=== PATIENT | female | born 1940 | race Caucasian/White ===

== ENCOUNTER 2024-11-01 10:06 | Outpatient (CLI) | payer OTHER, SELFPAY | END 2024-11-01 10:07 | disposition home or self-care (01) | LOC: AMB 11-04 08:46 | PROVIDERS: PCP Family Medicine; Visit Provider Student in an Organized Health Care Education/Training Program | DX: M25.511 Pain in right shoulder (principal); S41.001A Unspecified open wound of right shoulder, initial encounter | CPT/HCPCS: A0425; A0433 ==

== ENCOUNTER 2024-11-01 10:47 | Emergency (ER) | payer OTHER, SELFPAY ==
[2024-11-01] VITALS (8 sets, daily range): BP systolic 91–103; BP diastolic 70–73; PULSE 56–81; RESP 18; TEMP 36.2; O2SAT 90–96
--- NOTE | 2024-11-01 11:25 | ED.GENADULT ---
HPI - General Adult General Chief complaint: Unspecified Complaint, Adult Stated complaint: Shoulder pain Time Seen by Provider: 11/01/24 11:25 History of Present Illness HPI narrative: Nursing report from [facility] notes concern for increase in crying and potentially pain from pressure ulcer on right back. She arrived at [facility] only a few days ago after being hospitalized at [facility]. Patient diagnosed with severe dementia and is unable to verbal complaint. EMS started 20 gauge IV in left ac. Administered 1000 mg IV Tylenol, 50 mcg Fentanyl and 2 mg Morphine. 84-year-old woman presenting to the emergency department. Does cry in the setting of dementia and has been crying more lately. She is a new resident [facility] and concerned that something more might be going on. Family is at a distance and concern. No fever. No vomiting. With suspected complaints of pain EMS has given acetaminophen fentanyl and morphine. No known trauma. Does have a sore on the right shoulder blade back area. I understand this to be pressure ulcer of some sort. Related Data Allergies Allergy/AdvReac Type Severity Reaction Status Date / Time codeine Allergy Unknown Verified 11/01/24 11:09 lisinopril Allergy Unknown Verified 11/01/24 11:09 methotrexate Allergy Unknown Verified 11/01/24 11:09 Penicillins Allergy Unknown Verified 11/01/24 11:09 sulfamethoxazole (From Allergy Unknown Verified 11/01/24 11:09 Sulfamethoxazole-Trimethoprim) trimethoprim (From Allergy Unknown Verified 11/01/24 11:09 Sulfamethoxazole-Trimethoprim) Review of Systems Status of ROS: Reports: unobtainable due to mental status [facility] Social History Smoking Status: Unknown if ever smoked Exam Narrative: Exam Narrative: Crying and fearful. Cries out more with movement of the right shoulder but in general and with any interventions. I do not appreciate any defect, no erythema or swelling, other than we rolled her to see a known pressure ulcer/wound on her back right shoulder. There is a padded dressing over the top of this. An oval at 4 cm or so in maximal dimension. No particular inflammatory changes, no odor and no purulent drainage. For I believe lungs are clear but hard to auscultate for crying out. Heart in regular rate and rhythm. Appears to be moving all extremities without difficulty or least good strength. Const: Vital Signs, click to edit/add: Vital Signs - 24 hr 11/01/24 11:10 11/01/24 11:10 11/01/24 11:26 Temperature 97.2 F L Pulse Rate 71 77 Pulse Rate [Pulse Oximeter] 56 L Respiratory Rate 18 Blood Pressure Blood Pressure [Ri ght Upper Arm] 91/73 Pulse Oximetry 96 91 Oxygen Delivery Me thod Room Air 11/01/24 11:30 11/01/24 11:32 11/01/24 11:45 Temperature Pulse Rate 68 62 62 Pulse Rate [Pulse Oximeter] Respiratory Rate Blood Pressure 103/70 Blood Pressure [Ri ght Upper Arm] Pulse Oximetry 92 Oxygen Delivery Me thod 11/01/24 12:00 11/01/24 12:02 11/01/24 12:15 Temperature Pulse Rate 81 68 68 Pulse Rate [Pulse Oximeter] Respiratory Rate Blood Pressure 98/73 Blood Pressure [Ri ght Upper Arm] Pulse Oximetry 93 90 Oxygen Delivery Me thod Documenting provider has reviewed patient's vital signs: yes Course Vital Signs Vital signs: Initial Vital Signs Temperature 97.2 F L 11/01/24 11:10 Temperature Source Temporal Artery Scan 11/01/24 11:10 Pulse Rate 71 11/01/24 11:10 Respiratory Rate 18 11/01/24 11:10 Blood Pressure 91/73 11/01/24 11:10 Blood Pressure Mean 79 11/01/24 11:10 Pulse Oximetry 96 11/01/24 11:10 Oxygen Delivery Method Room Air 11/01/24 11:10 Vital Signs Temperature 97.2 F L 11/01/24 11:10 Pulse Rate 71 11/01/24 11:10 Respiratory Rate 18 11/01/24 11:10 Blood Pressure 91/73 11/01/24 11:10 Pulse Oximetry 96 11/01/24 11:10 Oxygen Delivery Method Room Air 11/01/24 11:10 Temperature 97.2 F L 11/01/24 11:10 Pulse Rate 68 11/01/24 12:15 Respiratory Rate 18 11/01/24 11:10 Blood Pressure 98/73 11/01/24 12:02 Pulse Oximetry 90 11/01/24 12:15 Oxygen Delivery Method Room Air 11/01/24 11:10 Medications Administered Medications: Discontinued Medications Generic Name Dose Route Start Last Admin Trade Name Freq PRN Reason Stop Dose Admin Sodium Chloride 1,000 mls @ 1,000 mls/hr 11/01/24 12:36 11/01/24 13:44 0.9 % Sodium Chloride 1000 Ml IV 11/01/24 13:35 Infused .Q1H ONE Infusion Ondansetron HCl 4 mg 11/01/24 14:35 11/01/24 14:39 Ondansetron 2 Mg/Ml Inj IVP 11/01/24 14:36 4 mg ONCE ONE Administration Medical Decision Making MDM Narrative Medical decision making narrative: Might be good if behaviors been changing due to simply urinary tract infection to check for this. Very small amount of urine out with catheterization Given a L normal saline as probably some dehydrated duration going on given his small amount of urine created with catheterization. Will check standard labs to look for evidence of further infection and did double check renal function. Will do x-rays of the right shoulder just to make sure were not dealing with anything beyond this ulcer. X-ray of the right shoulder is with some mild osteoarthritic changes per my independent read. Looks to be in normal alignment Urinalysis is unconvincing. This is catheter obtained. CBC and basic are WNL as well. Radiology over-read below INDICATION: Chronic pain, not otherwise described. COMPARISON: None available. TECHNIQUE: Three views of the right shoulder. FINDINGS: All three views are taken with a very similar patient orientation amounting to a scapular Y-view with the humeral head superimposed upon the glenoid. Alignment of the glenohumeral joint is normal. No fracture is identified. The patient is status post internal fixation of multiple right ribs. IMPRESSION: No specific findings to explain the clinical history of chronic pain. Incidental findings described in the body of the report. Dictated by Gregorio Kahn MD @ 11/01/2024 1:23:08 PM Given degree of dementia with a suspect some anxiety related to new placement. Perhaps this is driving some of the crying she has been doing. Would await culture urine for more convincing results before treatment. I think can safely be discharged to care of [facility]. See patient discharge plan for further discussion Small findings in your urine. We will however look at culture before initiating treatment. You probably need to meet with your care team to discuss further pain management if needed. Please continue current with wound cares/test specialist Medical Records Medical records reviewed: Yes I reviewed the patient's medical records Lab Data Lab results reviewed: Yes I reviewed the patient's lab results Labs: Lab Results 11/01/24 11/01/24 Range/Units 12:09 12:38 WBC 5.32 (4.50-11.00) K/uL RBC 3.44 L (4.00-5.20) m/uL Hgb 12.3 (12.0-16.0) gm/dL Hct 38.3 (33.0-51.0) % MCV 111 H (80-100) fL MCH 36 H (26-34) pg MCHC 32 (32-36) gm/dL RDW Coeff of Anil 15.6 H (11.5-15.5) % Plt Count 292 (140-440) K/uL Neut % (Auto) 83.4 H (42.0-72.0) % Lymph % (Auto) 9.6 L (20-44) % [place] % (Auto) 0.9 (0.0-11.0) % Eos % (Auto) 1.9 (0.0-7.0) % Baso % (Auto) 0.6 (0.0-3.0) % Neut # (Auto) 4.40 (1.7-7.0) K/uL Lymph # (Auto) 0.50 L (0.90-2.90) K/uL [place] # (Auto) 0.00 (0.00-0.90) K/UL Eos # (Auto) 0.10 (0.00-0.50) K/uL Baso # (Auto) 0.03 (0.00-0.30) K/uL Abs Immat Gran (auto) 0.19 (0.00-0.30) K/uL Imm/Tot Granulo (auto) 3.6 % Diff Slide Review Acceptable Review (Acceptable) Sodium 134 L (135-149) mmol/L Potassium 4.2 (3.6-5.1) mmol/L Chloride 104 (96-114) mmol/L Carbon Dioxide 24 (20-32) mmol/L Anion Gap 6 L (7-15) mEq/L BUN 27 (7-30) mg/dL Creatinine 1.3 (0.5-1.5) mg/dL Estimated GFR 40 ml/min Glucose 93 (60-115) mg/dL Calcium 8.1 L (8.4-10.6) mg/dL Urine Color Yellow (Yellow) Urine Appearance Slightly Cloudy A (Clear) Urine pH 5.5 (5.0-8.5) Ur Specific [place] 1.010 (1.000-1.030) Urine Protein Negative (Negative) Urine Glucose (UA) Negative (Negative) Urine Ketones Trace A (Negative) Urine Blood Negative (Negative) Urine Nitrite Negative (Negative) Urine Bilirubin 2+ A (Negative) Urine Urobilinogen 0.2 (0.2-1.0) Ur Leukocyte Esterase Trace A (Negative) Urine RBC 0-2 (0-2) Urine WBC 5-10 A (0-5) Ur Squamous Epith Cells Few (None-Few) Amorphous Sediment Few A (None) Other Sediment Few A (None) Urine Bacteria None (None) Discharge Plan Discharge Clinical Impression: Non-healing wound, Anxiety Patient Disposition: Home w/ Parent or Adult Condition: Stable Additional Instructions: Small findings in your urine. We will however look at culture before initiating treatment. You probably need to meet with your care team to discuss further pain management if needed. Please continue current with wound cares/test specialist Follow Up/Referrals: Paul Wills MD [Primary Care Provider, Family Practice] Stand Alone Forms: FeedHenry Info Instructions
--- NOTE | 2024-11-01 11:45 | CRLHL7_ITS ---
For Patients: As a result of the Cures Act, medical imaging exams and procedure reports are released immediately into your electronic medical record. You may view this report before your referring provider. If you have questions, please contact your health care provider. INDICATION: Chronic pain, not otherwise described. COMPARISON: None available. TECHNIQUE: Three views of the right shoulder. FINDINGS: All three views are taken with a very similar patient orientation amounting to a scapular Y-view with the humeral head superimposed upon the glenoid. Alignment of the glenohumeral joint is normal. No fracture is identified. The patient is status post internal fixation of multiple right ribs. IMPRESSION: No specific findings to explain the clinical history of chronic pain. Incidental findings described in the body of the report. Dictated by Gregorio Kahn MD @ 11/01/2024 1:23:08 PM (Electronically Signed)
--- OUTSIDE RECORDS SUMMARY | 2024-11-01 11:45 | XMS_ITS | Clinical Summary ---
Author Organization [facility] Address [address] [place] [id number] Care Team Providers Care Towboat Pilot Name Role Phone Cam Mccall Primary Care Provider Shine Garza [facility] Unavailable [phone] Allergies Active Allergy Reactions Criticality Noted Date Comments Codeine Nausea Only 04/16/2007 Lisinopril Cough 11/08/2016 Methotrexate Pancytopenia 12/02/2019 Penicillins Intolerance-Can't Take 07/15/2024 Per [facility] Sulfamethoxazole-Trime thoprim GI Upset 11/08/2016 Medications nitroglycerin (NITROSTAT) 0.4 mg sublingual tablet One tablet under tongue every 5 minutes up to 3 times as needed for chest pain. Call 911 if chest pain persists. 25 Tablet 11 2 12:59 PM CDT 10/07/19 22 Active timoloL maleate (TIMOPTIC) 0.5 % ophthalmic solution Place 1 Drop into left eye two times daily. 15 mL 3 4 12:37 PM CDT 03/20/20 23 Active omeprazole (PRILOSEC) 20 mg Delayed-Release capsule Take 1 Capsule (20 mg) by mouth once daily before a meal. 90 Capsule 3 4 1:35 PM CDT 06/07/19 24 Active brimonidine 0.2 % ophthalmic solution Place 1 Drop into both eyes two times daily. 15 mL 11 4 4:20 PM [employer] DIES 06/07/19 24 Active latanoprost (XALATAN) 0.005 % ophthalmic solution Place 1 Drop into left eye at bedtime. 7.5 mL 3 4 3:34 PM [employer] 12/13/19 24 Active atorvastatin (LIPITOR) 20 mg tablet Take 1 Tablet (20 mg) by mouth once daily. 90 Tablet 3 4 3:34 PM [employer] 01/23/20 24 Active furosemide 20 mg tabletIndications :Chronic heart failure with preserved ejection fraction (HFpEF) (HC) Take 0.5 Tablets (10 mg) by mouth once daily in the morning. Hold for SBP <100. 09/21/19 25 Active potassium chloride 10 mEq extended-release tablet (part/cryst)Indic ations:Hypokalemi a Take 1 Tablet (10 mEq) by mouth once daily with a meal. Hold if Lasix is held. 09/21/19 25 Active sennosides-docusa te (8.6-50 mg) tablet Take 2 Tablets by mouth 2 times daily if needed for Constipation. 09/24/19 25 Active calcium with vitamin D3 tablet Take 1 Tablet by mouth two times daily. Active metoprolol succinate SR 100 mg Sustained-Release tabletIndications :Permanent atrial fibrillation (HC) Take 1 Tablet (100 mg) by mouth two times daily. 09/29/19 25 Active digoxin 125 mcg (0.125 mg) tabletIndications :Permanent atrial fibrillation (HC) Take 1 Tablet (125 mcg) by mouth once daily. 09/30/19 25 Active docusate 100 mg capsule Take 1 Capsule (100 mg) by mouth once daily. And Take 1 tablet once daily as needed. Hold for loose stools. 09/30/19 25 Active warfarin 1 mg tabletIndications :Permanent atrial fibrillation (HC),Anticoagulat ion monitoring, INR range 2-3 Take by mouth 1 mg (1 mg x 1) every Mon, Fri; 1.5 mg (1 mg x 1.5) all other days in the evening OR as directed 10/01/19 25 Active acetaminophen 325 mg tabletIndications :Closed fracture of left tibial plateau with routine healing, subsequent encounter Take 2 Tablets (650 mg) by mouth three times daily. & 650 mg TID PRN. Max acetaminophen dose: 4000mg in 24 hrs. 10/02/19 25 Active mirtazapine 15 mg tablet Take 0.5 Tablets (7.5 mg) by mouth at bedtime. 10/15/19 25 Active ondansetron [address] 1 Tablet (4 mg) on the tongue 3 times daily if needed for Nausea/Vomiting. 10/02/19 25 025 Discontin ued(*Med complete/ Regimen complete/ Level of care change) oxyCODONE 5 mg immediate release tablet Take 0.5 Tablets (2.5 mg) by mouth every 8 hours if needed for Pain. 10/01/19 25 025 Discontin ued(*Med complete/ Regimen complete/ Level of care change) Active Problems Problem Noted Date Diagnosed Date DNR (do not resuscitate) 09/29/2024 Overview (09/29/2024): Discussed with daughter Laura on 09/29/2024. Outpatient palliative care follow up for [facility] discussion Lower abdominal pain 09/06/2024 Hypotension 09/05/2024 Hyponatremia 09/05/2024 Pressure injury of right upper back, unstageable 08/23/2024 Overview (09/16/2024): -Following fall 06/2024 -Initial Wound Clinic evaluation 08/23/24, unstageable -09/16/24 follow up, Stage 3 - much larger Cognitive impairment 08/23/2024 S/P Right femur intramedulla ry nail DOS: 07/04/2024 Dr. Cate Quispe 07/05/2024 Herpetic gingivostomatitis 06/06/2019 Pancytopenia 05/25/2019 Chronic heart failure with p reserved ejection fraction (HFpEF) 01/29/2018 Macrocytic anemia 11/21/2017 Cataract, right eye 11/08/2016 Hypertensive kidney disease, stage III 7 Overview (07/13/2019): Chronic Kidney Disease (CKD) Stage 3 GFR 30-59 Impaired fasting glucose 10/26/2015 Osteopenia 10/26/2015 Acquired trigger finger 09/02/2015 Unsteady gait 06/08/2015 Acquired deformity of clavicle 06/07/2015 Rhinitis, allergic 10/13/2014 Arteriosclerosis of coronary artery 04/15/2014 Gastroesophageal reflux disease 04/15/2014 Acquired renal artery stenosis 10/12/2013 Overview (07/13/2019): Stenosis Renal Artery, Left lower Atherosclerosis and Stenosis of the Left Lower Renal Artery (note that she has two left renal arteries)If her blood pressure remains under good control I would not intervene would respect to the stenosis of the left lower renal artery even though this may contribute to some renin-dependent hypertension. If her blood pressure becomes difficult to control, then selective renal vein renin would be indicated.As per Nephrology note from 06/06/2006. 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 Montoya, ENT on 02/06/2009. Seronegative rheumatoid arthritis 10/12/2013 Overview (09/16/2024): Per [facility] Solitary pulmonary nodule 10/12/2013 Stenosis of left carotid artery 10/12/2013 Overview (07/13/2019): She saw [facility] on 07/20/2006. No further intervention indicated. Sensorineural hearing loss (SNHL) of both ears 0 02/06/2013 Ascending aortic aneurysm 04/05/2012 Overview (07/13/2019): Dilatation Ascending Aorta Hyperlipidemia 04/05/2012 Glaucoma 11/25/2009 Elevated antinuclear antibody (DO) level 2008 Essential hypertension 07/24/2007 Resolved Problems Problem Noted Date Diagnosed Date Resolved Date Closed fracture of lateral p ortion of left tibial plateau with routine healing 07/22/202408/04 Anticoagulation monitoring, INR range 2-3 07/16/2024 10/24/2024 Closed displaced segmental f racture of shaft of right femur 07/06/2024 08/23/2024 Permanent atrial fibrillation 12/02/2019 10/24/2024 Overview (08/23/2024): AI Summary: As of 07/25/24: The patient's AFib has been associated with complications such as elevated troponin levels (possibly indicating ischemia) and has been managed with rate control medications. DVT prophylaxis with coumadin was also noted in the context of hip fracture. As of 07/08/24: Atrial fibrillation (AFib) with rapid ventricular rate (RVR) was first noted in 2019 and has been a recurring issue, requiring multiple cardioversions. The patient experienced early recurrence after cardioversion in 2019. 07/12/24: HR 71 /min 07/19/24: INR 2.3 On meds: diltiazem, metoprolol succinate, potassium chloride, timolol, warfarin Recent encounter dx: 07/25/24: Appointment - [facility] 07/23/24: Lab Requisition - [facility], [facility]) 07/23/24: Appointment - [facility] 07/18/24: Support OP Encounter - [facility] 07/17/24: Lab Requisition - [facility], [facility] (from [facility]) Recent studies: 07/04/24: 12 Lead EKG by Joey Mercado MD ... [+] Atrial fibrillation with rapid ventricular response Inferior infarct , age undetermined ST & T wave abnormality, consider anterolateral ischemia Abnormal ECG When compared with ECG of 03-Jul-2024 19:24, Inferior infarct is present vent rate decreased 41 bpm 07/04/24: ECHO TRANSTHORACIC COMPLETE by Joey Mercado MD, Shlomo Dsouza MD ... [+] Indication for study: CHRONIC ISCHEMIC HEART DISEASE Cardiac Rhythm: Irregular and atrial fibrillation.Study quality: Fair. ... [+] Final Impressions: 1. The rhythm was afib with RVR during the study [V- rate 130s-150s bpm]. 2. LVEF estimate 50-55%. Normal LV size and wall thickness. 3. Normal RV size and global function. 4. Mild AI. 5. Mild MR and mild TR. 6. Severe MICK. 7. Normal PASP and RAP estimates. 8. Dilated ascending aorta [4.8 cm]. Chamber Sizes and Function No resting regional wall motion abnormality visualized. ... 07/03/24: EKG [address] [facility] Ed Triage ... [-] Atrial fibrillation with rapid ventricular response Marked ST abnormality, possible inferior subendocardial injury Abnormal ECG 03/13/20: EKG - 12 Lead by Ochoa Wiley MD ... [+] Atrial fibrillation Incomplete right bundle branch block ST & T wave abnormality, consider inferior ischemia or digitalis effect ST & T wave abnormality, consider anterolateral ischemia or digitalis effect Prolonged QT Abnormal ECG No previous ECGs available 03/10/20: [facility] [place] ... [+] Atrial fibrillation Final Impressions ... [+] Calculated ejection fraction 54% (estimated 50%, fywc-cl-unuo variation due to atrial fibrillation). ... [+] Compared to the report of 01/09/2019 the following changes have occurred: atrial fibrillation replaced sinus rhythm; decreased left ventricular systolic function; stable aortic diameters. Recent notes: 07/25/24: Progress Notes - TCU VISIT NOTE by Andreina Nixon MD ... [+] ? Atrial fibrillation (HC) ... [+] WBAT LLE, WBAT RLE per ortho DVT proph - already on coumadin for a fib. ... [+] Atrial fibrillation with RVR (HC) 07/23/24: Progress Notes - TCU VISIT NOTE by [place] Santana NP ... [+] NWB LLE, WBAT RLE per ortho DVT proph - already on coumadin for a fib. 07/12/24: Discharge Summary by Bladimir Alvarenga MD ... [+] Paroxysmal atrial fibrillation (HC) ... [+] For diagnoses: Atrial fibrillation with RVR (HC) ... [+] F/u [facility] in 4-6 weeks s/p afib w/RVR, med mgmt for rate control, preserved EF 07/11/24: Progress Notes by Bladimir Alvarenga MD ... [+] initially 3.7 -> 3.2 -> 2.9 --> 3.4 in setting of severe pain, rapid afib. ... [-] trop slightly elevated 20->22, likely demand ischemia in context of CKD and rapid afib up to 150s in the room. 07/08/24: Progress Notes - Inpatient General Cardiology Progress Note by Maral Johnson NP ... [+] Afib w/RVR ... [+] Karina Castaneda is a 84 y.o. female with atrial fibrillation s/p cardioversion after 5 shocks with early recurrence in 2020, YUE, hypertension, AAA, ASCVD, chronic HFpEF, aortic aneurysm, who presented with a fall and right hip fracture complicate d by atrial fibrillation with RVR. ... [-] Cardiology consulted for afib w/RVR rate mgmt. ... [+] Tele: Afib 70-80's ... [+] EC07/04/24: Afib w/RVR, VR 114, inferior TWI 07/03/24: Afib with RVR, VR 155, inferior TWI Mouth ulceration 05/24/2019 08/23/2024 Menopause 10/16/2013 08/23/2024 Hypokalemia 04/09/2012 07/04/2024 Encounters Date Type Department Care Team Description 10/30/[address] [place] [address] Ivan Osorio MD Questions (anticoagulation) 10/24/[address] [address] Clinic, Asct Tcu Inr Anticoagulation (TCU DC) 10/22/2024 Patient Outreach [facility] Care Management - Care Management Navigation/[facility] [address] [place] [address] Derek Hinds COTA TCU Transition 10/21/2024 9:30 AM T Intermediate [address] [address] [place] Santana NP Transitional Care Visit (TCU Discharge Summary) 10/21/2024 Anticoagulation (warfarin) [address] [address] Clinic, Asct Tcu Inr Anticoagulation (TCU) 10/14/2024 9:45 AM T Intermediate [address] [address] [place] Santaan NP Transitional Care Visit (Follow up) 10/08/2024 9:15 AM CDT Intermediate [address] [address] [place] Santana NP Transitional Care Visit (Follow up) 10/08/2024 Telephone [facility] [address] [place] [address] Shine Garza NP Wound Check (Developing hypergranulation - call back requested) 10/07/2024 Anticoagulation (warfarin) [address] [address] Clinic, Asct Tcu Inr Anticoagulation (TCU) 10/04/2024 10:15 AM CDT Intermediate [address] [address] [place] Santana NP Transitional Care Visit (Follow up) 10/03/2024 Orders Only [facility] Scanner 1 scan: (1-Ord) [facility], 10/03/2024 10/03/2024 Nurse Triage [address] [address] [place] Santana NP Results 10/02/2024 9:30 AM CDT Phone Office Visit [facility] Orthopedics [facility] [address] [phone] Cate Quispe MD Recheck (EP-PV, S/P Right femur intramedullary nail DOS:07/04/2024 Dr. Cate Quispe, x-ray review) 10/02/2024 Patient Outreach [facility] - Care Management [facility]/[address] [address] Derek Hinds COTA TCU Transition 10/02/2024 Travel 10/01/2024 8:15 AM CDT Intermediate [address] [address] Andreina Nixon MD Transitional Care Visit (MD Re-Admit) 10/01/2024 Patient Outreach [facility] Management - Care Management Navigation/[facility] [address] [place] [address] Derek Hinds, GONZALES TCU Transition 09/30/2024 11:00 AM CDT Intermediate [address] [address] [place] Santana NP Transitional Care Visit ([facility] Re-admit/Initial) 09/30/[address] [address] [place] Santana NP Medication Management (Multi-vitamin; pantoprazole verses omeprazole ) 09/30/2024 Anticoagulation (warfarin) [address] [address] Clinic, Asct Tcu Inr Anticoagulation (TCU ) 09/30/2024 Travel 09/29/2024 Telephone [facility] [address] [place] [address] Brandi Poole MBBS 09/27/[address] Blanco [address] [place] [address] Ivan Osorio MD Cardiology Appointment 09/26/2024 Patient Outreach [facility] Care Management - Care Management Navigation/[facility] [address] [place] [address] Derek Hinds, GONZALES TCU Transition 09/25/2024 Patient Outreach [facility] Care Management - Care Management Navigation/[facility] [address] [place] [address] Derek Hinds, GONZALES TCU Transition 09/24/2024 11:47 AM CDT - 09/29/2024 12:15 PM CDT Hospital Encounter [facility] [address] [place] [address] Artie Dent MD [facility] Hospitalists Of Iván, MD Gal Potts, MD Liya Nolankvicmyla, MD Zulema Parra Hani, MBBS Confusion (Primary Dx); Blood pressure lower than prior measurement; Other problems related to social environment; Permanent atrial fibrillation (HC) Discharge Disposition: Shelter Facility 09/24/2024 10:30 AM CDT Office Visit [facility] [address] [place] [address] [address] [place] [address] Ivan Osorio MD Follow Up (Follow up post hosp discharge re: Afib w/ RVR (06/2024)) 09/24/2024 Telephone [facility] [address] [place] [phone] Cate Quispe MD 09/24/2024 Travel 09/23/2024 9:30 AM CDT Intermediate [address] [address] [place] Santana NP Transitional Care Visit (Follow up) 09/20/2024 Orders Only [facility] Scanner 1 scan: (1-Ord) [facility], PT/INR, [facility], 09/20/2024 09/20/2024 Anticoagulation (warfarin) [address] [address] Clinic, Asct Tcu Inr Anticoagulation (TCU) 09/19/2024 9:15 AM CDT [address] [address] [place] Santana NP Transitional Care Visit (Follow up) 09/18/2024 Patient Outreach [facility] Management - Care Management Navigation/[facility] [address] [place] [address] Derek Hinds COTA TCU Transition 09/17/2024 9:15 AM CDT Intermediate [address] [address] [place] Santana NP Transitional Care Visit (Follow up) 09/16/2024 1:00 PM CDT Office Visit [facility] [address] [place] [address] Shine Garza NP Wound Check 09/16/2024 Travel 09/16/2024 Patient Outreach [facility] Management - Care Management Navigation/[facility] [address] [place] [address] Derek Hinds GONZALES TCU Transition 09/13/2024 9:45 AM CDT Intermediate [address] [address] [place] Santana NP Transitional Care Visit (Follow up) 09/13/2024 Orders Only [facility] Scanner 1 scan: (1-Ord) [facility], [facility], 09/13/2024 09/13/2024 Anticoagulation (warfarin) [address] [address] Clinic, Asct Tcu Inr Anticoagulation (TCU) 09/13/2024 Nurse Triage [address] [address] [place] Santana NP Results ([facility]) 09/11/2024 9:15 AM CDT Intermediate [address] [address] [place] Santana NP Transitional Care Visit ([facility] Initial/Re-Admit) 09/11/2024 Anticoagulation (warfarin) [address] [address] [place] Santana NP Anticoagulation (TCU) 09/06/2024 Patient Outreach [facility] Care Management - Care Management Navigation/[facility] [address] [place] [address] Derek Hinds GONZALES TCU Transition 09/05/2024 8:05 PM CDT - 09/10/2024 3:30 PM CDT Hospital Encounter [facility] [address] [place] [address] Artie Dent MD [facility] Hospitalists Of Walter, MD Yanira Llanos Duc Minh, MD Desautels, Sophie St MD Generalized weakness (Primary Dx); Acute kidney injury; Hypotension, unspecified hypotension type; Permanent atrial fibrillation (HC); Atrial fibrillation with RVR (HC); Chronic heart failure with preserved ejection fraction (HFpEF) (HC); Hypokalemia Discharge Disposition: Shelter Facility 09/05/2024 8:45 AM CDT Intermediate [address] [address] [place] Santana NP Transitional Care Visit (Follow up) 09/05/2024 Orders Only [facility] Scanner 1 scan: (1-Ord) [facility], MULTIPLE LABS, 09/05/2024 09/05/2024 Orders Only [facility] Scanner 1 scan: (1-Ord) [facility], ABDOMEN 2 VIEWS, 09/05/2024 09/05/2024 Travel 09/05/2024 Nurse Triage [address] [address] [place] Santana I, LISA Abnormal Lab Results (CBC, UA) 09/05/2024 Nurse Triage [address] [address] [place] Santana NP Imaging 09/05/2024 Patient Outreach [facility] Whyd - Care Management Navigation/[facility] [address] [place] [address] Derek Hinds COTA TCU Transition 09/05/2024 Nurse Triage [address] [address] [place] Santana NP Pain (Abdomen ) 09/04/2024 Orders Only [facility] Scanner 1 scan: (1-Ord) [facility], PROTIME INR, 09/04/2024 09/04/2024 Anticoagulation (warfarin) [address] [address] Clinic, Asct Tcu Inr Anticoagulation ( ASCT TCU Patient ([facility]) ) 09/04/2024 Telephone [facility] [address] [place] [address] Karina Ryan NP Home Care (Home Health Care Plan after Transitional Care Unit discharge) 09/04/2024 Patient Outreach [facility] Management - Care Management Navigation/[facility] [address] [place] [address] Derek Hinds COTA TCU Transition 09/03/2024 8:45 AM CDT Intermediate [address] [address] [place] Santana NP Transitional Care Visit (Follow up & TCU Discharge Summary) 09/02/2024 Anticoagulation (warfarin) [address] [address] Clinic, Asct Tcu Inr Anticoagulation (TCU) 09/02/2024 Transcribe Orders [facility] [address] [place] [address] [place] Santana NP 08/30/2024 Orders Only [facility] Scanner 1 scan: (1-Ord) [facility], PT INR, 08/30/2024 08/30/[address] [address] [place] Santana NP Anticoagulation (Supratherapeutic INR) 08/30/2024 Anticoagulation (warfarin) [address] [address] Clinic, Asct Tcu Inr Anticoagulation (TCU) 08/28/2024 8:30 AM CDT Intermediate [address] [address] [place] Santana NP Transitional Care Visit (Follow up) 08/28/2024 Orders Only [facility] Scanner 1 scan: (1-Ord) [facility], PROTIME/INR, 08/28/2024 08/28/[address] [address] [place] Santaan NP Anticoagulation (Supratherapeutic INR) 08/28/2024 Anticoagulation (warfarin) [address] [address] Clinic, Asct Tcu Inr Anticoagulation (TCU) 08/28/2024 Nurse Triage [address] [address] Andreina Nixon MD Transitional Care Visit (INR result ) 08/27/2024 Anticoagulation (warfarin) [address] [address] Clinic, Asct Tcu Inr Anticoagulation (Chart Update) 08/27/2024 Patient Outreach [facility] Management - Care Management Navigation/[facility] [address] [place] [address] Derek Hinds COTA TCU Transition 08/27/2024 Orders Only [address] [address] [place] Santana NP <No scans attached> 08/27/2024 Telephone [facility] [address] [place] [address] Shine Garza NP Concerns (Wound change with request for orders ) 08/26/2024 10:05 PM CDT - 08/27/2024 2:[address] [facility] Emergency Department [address] [place] [address] Rhonda Robles MD Brennom, Wade James, MD Fall, initial encounter (Primary Dx); Elevated INR Discharge Disposition: Home Self Care 08/26/2024 9:15 AM CDT Intermediate [address] [address] [place] Santana NP Transitional Care Visit (TCU Discharge Summary) 08/26/2024 Travel 08/26/2024 Nurse Triage [address] [address] [place] Santana NP Fall 08/26/[address] [address] [place] Santana NP Refill Request (Oxycodone) 08/23/2024 10:00 AM CDT Intermediate [address] [address] [place] Santana NP Transitional Care Visit (Follow up) 08/23/2024 9:30 AM CDT Office Visit [facility] [address] [place] [address] Shine Garza NP Consult 08/23/2024 Travel 08/21/2024 9:25 AM CDT Ancillary Procedure [address] [phone] 08/21/2024 9:20 AM CDT Ancillary Procedure [address] [place] [address] 08/21/2024 9:00 AM CDT Office Visit [address] [address] Cate Quispe MD Post-op (S/P Right femur intramedullary nail DOS: 07/04/2024 Dr. Cate Quispe); Knee Pain/problem (left tibial plateau fracture) 08/21/2024 Orders Only [facility] Scanner 1 scan: (1-Ord) [facility], MULTIPLE LABS, 08/21/2024 08/21/[address] [address] [place] Santana NP Error-please disregard (opened in error) 08/21/2024 Anticoagulation (warfarin) [address] [address] Clinic, Asct Tcu Inr Anticoagulation (TCU) 08/21/2024 Travel 08/19/2024 8:30 AM CDT Intermediate [address] [address] [place] Santana NP Transitional Care Visit (Follow up + Hospital bed f2f, w/c f2f) 08/15/2024 7:45 AM CDT Intermediate [address] [address] Mary Worthington NP Transitional Care Visit (Follow up) 08/15/2024 Nurse Triage [address] [address] [place] Santana NP Nausea (Vomited x2.) 08/14/2024 Orders Only [facility] Scanner 1 scan: (1-Ord) [facility], PROTIME-INR, 08/14/2024 08/14/2024 Anticoagulation (warfarin) [address] [address] Clinic, Asct Tcu Inr Anticoagulation (TCU) 08/13/2024 7:30 AM CDT Intermediate [address] [address] Andreina Nixon MD Transitional Care Visit (Follow up) 08/12/2024 Orders Only [address] [address] [place] Santana I, [facility] <No scans attached> 08/08/2024 Orders Only [address] [address] [place] Santana I, [facility] <No scans attached> 08/07/2024 9:00 AM FINISHER FINE DIAM[employer] DIES Intermediate [address] [address] Sharon Santana I, LISA Transitional Care Visit (Follow up) 08/07/2024 Orders Only [facility] Scanner 1 scan: (1-Ord) [facility], PT INR, 08/07/2024 08/07/[address] [address] Sharon Santana I, MARKETING DIRECTOR ASSISTED LIVING Anticoagulation 08/07/2024 Anticoagulation (warfarin) [address] [address] Clinic, Asct Tcu Inr Anticoagulation (TCU) 08/06/2024 9:00 AM FINISH[employer] Intermediate [address] [address] Andreina Nixon MD Transitional Care Visit (Follow up) 08/05/2024 Orders Only [facility] Scanner 1 scan: (1-Ord) [facility], CBC WITH DIFFERENTIAL, 08/05/2024 08/05/2024 Nurse Triage [address] [address] Sharon Santana NP Abnormal Lab Results from Last 3 Months Immunizations Immunization Administration Dates Next Due DT (Age < 7 years) 04/14/2005 Influenza Virus, Unspecified 05/06/2016, 04/24/2015,04/22/2015,2013,04/08/2013,03/27/2012,03/27/2012,1 ,03/24/2010,02/23/2009 Influenza, High-dose Inactivated 019,05/25/2018,05/09/2017,2015,04/24/2015 Influenza, High-dose Quadriv alent Inactivated 04/07/2023,03/31/2022,06/03/2021,2019 Influenza, IIV3 (Age >=3 years) 03/27/2012 Pneumococcal Poly,23-Valent (Pneumovax) 04/14/2005 Pneumococcal conj 13-Valent (Prevnar 13) 10/13/2014 Tdap 03/27/2012 Family History Medical History Relation Name Comments Heart Disease Father Premature CHD (under age 60) Neg. negative Relation Name Status Comments Father Neg. Alive Social History Tobacco Use Types Packs/Day Years Used Date Smoking Tobacco: Never Smokeless Tobacco: Never Alcohol Use Standard Drinks/Week Comments Not Currently 0 (1 standard drink = 0.6 oz pur e alcohol) none Social Connections Answer Date Recorded Do you often feel lonely or isolated from those around you? 4 09/24/2024 Financial Resource Strain Answer Date R ecorded Difficulty of Paying Living Expenses 3 07/04/2024 Difficulty of Paying Living Expenses Not on file 07/04/2024 Food Insecurity Answer Date Recorded Do you worry your food will run out before you are able to buy more? 1 09/24/2024 Transportation Needs Answer Date Record ed Does lack of transportation keep you from medica l appointments? 1 09/24/2024 Does lack of transportation keep you from work, meetings or getting things that you need? 1 09/24/2024 Housing Stability Answer Date Recorded What is your housing situation today? 1 09/24/2024 Interpersonal Safety Answer Date Record ed Are you being hit, kicked, p ushed or yelled at (see row info)? No 09/24/2024 Interpersonal Safety Abuse 12 - 18 Not on file 09/24/2024 Interpersonal Safety Ambulatory Vulnerability No t on file 09/24/2024 Utilities Answer Date Recorded Do you have trouble paying f or utilities (for example, heat, electricity, water, phone)? 1 09/24/2024 Comments No Sex and Gender Information Value Date Recorded Sex Assigned at Not on file Legal Sex Female 5:23 AM FINISH[employer] Gender Identity Not on file Sexual Orientation Not on file Obstetrics History Last Filed Vital Signs Vital Sign Reading Time Taken Comments Blood Pressure 97/71 09/29/2024 11:47 AM CDT Pulse 89 09/29/2024 11:47 AM CDT Temperature 36.7 C (98 F) 09/29/2024 8:40 AM CDT Respiratory Rate 16 09/29/2024 8:40 AM CDT Oxygen Saturation 94% 09/29/2024 11:47 AM CDT Inhaled Oxygen Concentration - - Weight 52.7 kg (116 lb 3.2 oz) 09/29/2024 6:00 A M CDT Height 162.6 cm (5' 4) 09/24/2024 11:27 AM CDT Body Mass Index 19.95 09/24/2024 11:27 AM CDT Plan of Treatment Upcoming Encounters Date Type Department Care Team (Late st Contact Info) Description 11/15/2024 10:30 AM CDT Office Visit [facility] [address] [facility] [address] [place] [phone] Johanna Waller, LISA [address] [place] [address] 01/01/2025 8:00 AM CDT Phone Office Visit [facility] [address] [place] [phone] Cate Quispe MD [address] Chance (app) [address] [place] [id number] Health Maintenance Due Date Last Done Comments RSV vaccine for adults or (1 - 1-dose 75+ series) 2014 Influenza Vaccine (Season Ended) 2025 03/29/2019, 05/25/2018, 05/09/2017, Additional history exists Hepatitis B series for 19+ Aged Out N o longer eligible based on patient's age to complete this topic Medical Devices Implanted Type Area Graining Press Operator Device Identifier Shelf Expiration Date Model / Serial / Lot Iol Taylor +26 Nishant Zcb00 - [id number] Implanted:Qty: 1 on 11/09/2016 by Lopez Turner Jr., MD at [facility] Right: Eye [employer] 01/03/2018 [id number]# / [id number] / Cable W/Crimp St-St Evos - [id number] Implanted:Qty: 1 on 07/04/2024 by Cate Quispe MD at [facility] Right: Femur [employer] 06/30/2028 [id number] / / [id number] Intertan 10s 10mm X 38cm 130d Right Implanted:Qty: 1 on 07/04/2024 by Cate Quispe MD at [facility] Right: Femur 12/09/2028 [id number] / / [id number] Description:INTERTAN 10S 10M M X 38CM 130D RIGHT Kit Bone Screw 100/95 Comp Lag - [id number] Implanted:Qty: 1 on 07/04/2024 by Cate Quispe MD at [facility] Right: Femur [employer] 02/18/2034 [id number] / / [id number] Screw Bone 5.0x42.5mm Trigen Srini Low Profile Titnm - [id number] Implanted:Qty: 1 on 07/04/2024 by Cate Quispe MD at [facility] Right: Femur [employer] 12/12/2033 [id number] / / [id number] Screw Bone 5x45mm Trigen Lock Low Profile - [id number] Implanted:Qty: 1 on 07/04/2024 by Cate Quispe MD at [facility] Right: Femur [employer] 11/24/2030 [id number] / / [id number] Procedures Procedure Name Priority Date/Time Associated Diagnosis Comments INR,POCT Routine 10/21/2024 SCAN-LABORATORY REPORT 10/03/2024 12:00 AM CDT SCAN-CARDIAC STRIP 09/29/2024 1: 23 AM CDT POTASSIUM Early AM 09/28/2024 2:51 PM CDT MAGNESIUM Early AM 09/28/2024 2:51 PM CDT SCAN-CARDIAC STRIP 09/28/2024 10 :05 AM CDT SCAN-CARDIAC STRIP 09/28/2024 7: 33 AM CDT PROTIME-INR Early AM 09/28/2024 7:23 AM CDT SCAN-CARDIAC STRIP 09/28/2024 12 :24 AM CDT SCAN-CARDIAC STRIP 09/27/2024 8: 00 PM CDT POTASSIUM Timed 09/27/2024 7:00 PM CDT SCAN-CARDIAC STRIP 09/27/2024 6: 22 PM CDT SCAN-CARDIAC STRIP 09/27/2024 6: 22 PM CDT POTASSIUM Early AM 09/27/2024 11:21 AM CDT MAGNESIUM Early AM 09/27/2024 11:21 AM CDT PROTIME-INR Early AM 09/27/2024 11:21 AM CDT SCAN-CARDIAC STRIP 09/26/2024 8: 39 PM CDT TSH ANGELICA 09/26/2024 8:51 AM CDT PRO-BNP ANGELICA 09/26/2024 8:51 AM CDT MAGNESIUM Today 09/26/2024 8:51 AM CDT HEMOGLOBIN Early AM 09/26/2024 8:51 AM CDT POTASSIUM Early AM 09/26/2024 8:51 AM CDT PROTIME-INR Early AM 09/26/2024 8:51 AM CDT SCAN-CARDIAC STRIP 09/26/2024 7: 31 AM CDT MAGNESIUM Timed 09/25/2024 9:17 PM CDT SCAN-CARDIAC STRIP 09/25/2024 4: 28 PM CDT ECHO TTE LIMITED WO CONTRAST W COLOR W LTD DOPPLER Routine 09/25/2024 12:36 PM CDT PROTIME-INR Early AM 09/25/2024 7:43 AM CDT MAGNESIUM Early AM 09/25/2024 7:43 AM CDT CBC W PLT NO DIFF Early AM 09/25/2024 7:4 3 AM CDT BASIC METABOLIC PANEL Early AM 09/25/2024 7:43 AM CDT SCAN-CARDIAC STRIP 09/25/2024 7: 31 AM CDT SCAN-CARDIAC STRIP 09/25/2024 2: 03 AM CDT SCAN-CARDIAC STRIP 09/24/2024 10 :43 PM CDT UA W/ SEDIMENT EXAM REFLEXED PER CRITERIA STAT 09/24/2024 2:31 PM CDT PROTIME-INR STAT 09/24/2024 2:[address] HEAD BRAIN WO STAT 09/24/2024 12:5 1 PM CDT XR CHEST 2 VIEWS PA AND LATERAL STAT 09/24/2024 12:42 PM CDT BASIC METABOLIC PANEL STAT 09/24/2024 12:15 PM CDT CBC W PLT NO DIFF STAT 09/24/2024 12: 15 PM CDT EKG 12 LEAD STAT 09/24/2024 11:58 AM CDT EKG 12 LEAD Routine 09/24/2024 Atrial fibrillation with RVR (HC) INR,POCT Routine 09/20/2024 8:35 AM CDT SCAN-LABORATORY REPORT 09/20/2024 12:00 AM CDT SCAN-LABORATORY REPORT 09/13/2024 12:00 AM CDT INR,POCT Routine 09/13/2024 INR,POCT Routine 09/11/2024 SODIUM Early AM 09/10/2024 8:15 AM CDT POTASSIUM Early AM 09/10/2024 8:15 AM CDT CREATININE Early AM 09/10/2024 8:15 AM CDT PROTIME-INR Early AM 09/10/2024 8:15 AM CDT SCAN-CARDIAC STRIP 09/10/2024 1: 47 AM CDT HEMOGLOBIN Early AM 09/09/2024 9:35 AM CDT SODIUM Early AM 09/09/2024 9:35 AM CDT POTASSIUM Early AM 09/09/2024 9:35 AM CDT CREATININE Early AM 09/09/2024 9:35 AM CDT PROTIME-INR Early AM 09/09/2024 9:35 AM CDT SCAN-CARDIAC STRIP 09/09/2024 12 :48 AM CDT SCAN-CARDIAC STRIP 09/08/2024 2: 12 PM CDT SODIUM Early AM 09/08/2024 10:54 AM CDT POTASSIUM Early AM 09/08/2024 10:54 AM CDT CREATININE Early AM 09/08/2024 10:54 AM CDT PROTIME-INR Early AM 09/08/2024 10:[address] ABDOMEN PELVIS STONE PROTOCOL WO Routine 09/08/2024 10:39 AM CDT POTASSIUM Early AM 09/07/2024 10:26 AM CDT SODIUM Early AM 09/07/2024 10:26 AM CDT CREATININE Early AM 09/07/2024 10:26 AM CDT PROTIME-INR Early AM 09/07/2024 10:26 AM CDT PROTIME-INR Early AM 09/06/2024 8:54 AM CDT HEMOGLOBIN Early AM 09/06/2024 8:53 AM CDT WHITE BLOOD COUNT Early AM 09/06/2024 8:5 3 AM CDT CREATININE Early AM 09/06/2024 8:53 AM CDT POTASSIUM Early AM 09/06/2024 8:53 AM CDT SODIUM Early AM 09/06/2024 8:53 AM CDT TROPONIN T (HS) ONE TIME Timed 09/05/2024 11:05 PM CDT URINE CULTURE ANGELICA 09/05/2024 10:09 PM CDT URINALYSIS MICROSCOPIC STAT 09/05/2024 10:09 PM CDT UA W/ SEDIMENT EXAM REFLEXED PER CRITERIA STAT 09/05/2024 10:09 PM CDT XR CHEST 1 VIEW PORTABLE STAT 09/05/2024 9:21 PM CDT EKG 12 LEAD STAT 09/05/2024 8:43 PM CDT LACTATE SCREEN ISTAT W CISSE STAT 09/05/2024 8:32 PM CDT TROPONIN T (HS) ACUTE W/2HR REFLEX ANGELICA 09/05/2024 8:26 PM CDT EXTRA TUBE CISSE ON ICE STAT 09/05/2024 8:26 PM CDT PROTIME-INR STAT 09/05/2024 8:26 PM CDT LIPASE STAT 09/05/2024 8:26 PM CDT HEPATIC FUNCTION PANEL STAT 09/05/2024 8:26 PM CDT ISTAT LACTATE SCREEN STAT 09/05/2024 8:26 PM CDT BASIC METABOLIC PANEL STAT 09/05/2024 8:26 PM CDT CBC W PLT NO DIFF STAT 09/05/2024 8:2 6 PM CDT SCAN-LABORATORY REPORT 09/05/2024 12:00 AM CDT SCAN-RADIOLOGY REPORT 09/05/2024 12:00 AM CDT INR,POCT Routine 09/04/2024 9:32 AM CDT SCAN-LABORATORY REPORT 09/04/2024 12:00 AM CDT INR,POCT Routine 09/02/2024 6:34 AM CDT SCAN-LABORATORY REPORT 08/30/2024 12:00 AM CDT INR,POCT Routine 08/30/2024 SCAN-LABORATORY REPORT 08/28/2024 12:00 AM CDT INR,POCT Routine 08/28/2024 CT HEAD BRAIN WO STAT 08/26/2024 10:3 5 PM CDT EKG 12 LEAD STAT 08/26/2024 10:27 PM CDT CBC WITH AUTO DIFFERENTIAL STAT 08/26/2024 10:20 PM CDT PROTIME-INR STAT 08/26/2024 10:20 PM CDT BASIC METABOLIC PANEL STAT 08/26/2024 10:20 PM CDT CBC WITH AUTO DIFFERENTIAL STAT 08/26/2024 10:20 PM CDT XR KNEE 2 VIEWS LEFT Routine 08/21/2024 9:34 AM CDT Closed fracture of lateral portion of left tibial plateau with routine healing XR FEMUR 2 VIEWS RIGHT Routine 08/21/2024 9:34 AM CDT S/P Right femur intramedullary nail DOS: 07/04/2024 Dr. Cate Quispe SCAN-LABORATORY REPORT 08/21/2024 12:00 AM CDT INR,POCT Routine 08/21/2024 SCAN-LABORATORY REPORT 08/14/2024 12:00 AM CDT INR,POCT Routine 08/14/2024 SCAN-LABORATORY REPORT 08/07/2024 12:00 AM FINISH[employer] DIES INR,POCT Routine 08/07/2024 SCAN-LABORATORY REPORT 08/05/2024 12:00 AM FINISHER FINE DIAM[employer] DIES from Last 3 Months Results * (ABNORMAL) INR,POCT (10/21/2024) Only the most recent of11 resultswithin the time period is included. Pathologist [facility] INR 3.2(EXTERNA L) 0.0 - 1.2 [facility] Blood BLOOD SPECIMEN / Unknown us Sharon Santana MARKETING DIRECTOR ASSISTED LIVING LABORATORY Final Resu lt Performing Organization Address City/[facility]/ZIP Co de Phone Number [facility] [address] [place] [address] * SCAN-LABORATORY REPORT (10/03/2024 12:00 AM CDT) Only the most recent of11 resultswithin the time period is included. us Scanner OTHER Final Result * SCAN-CARDIAC STRIP (09/29/2024 1:23 AM CDT) us Scanner OTHER Final Result * POTASSIUM (09/28/2024 2:51 PM CDT) Only the most recent of9 resultswithin the time period is included. [facility] POTASSIUM 4.3 3.5 - 5.1 mmol/L 09/28/2024 3:34 PM CDT [facility] Blood BLOOD SPECIMEN / Unknown Venipuncture / Unknown 09/28/2024 2:51 PM CDT 09/28/2024 3:05 PM CDT us Brandi SUH CHEMISTRY Final Result Performing Organization Address City/[facility]/ZIP Co de Phone Number [facility] [address] [place] [address], [place] * MAGNESIUM (09/28/2024 2:51 PM CDT) Only the most recent of5 resultswithin the time period is included. Pathologist [facility] MAGNESIUM 1.6 1.6 - 2.4 mg/dL 09/28/2024 3:34 PM CDT [facility] Blood BLOOD SPECIMEN / Unknown Venipuncture / Unknown 09/28/2024 2:51 PM CDT 09/28/2024 3:05 PM CDT us Brandi SUH CHEMISTRY Final Result [facility] [address] [place] [address], [place] * SCAN-CARDIAC STRIP (09/28/2024 10:05 AM CDT) us Scanner OTHER Final Result * SCAN-CARDIAC STRIP (09/28/2024 7:33 AM CDT) us Scanner OTHER Final Result * (ABNORMAL) PROTIME-INR (09/28/2024 7:23 AM CDT) Only the most recent of12 resultswithin the time period is included. INR 2.5(H) <1.3 09/28/2024 8:16 AM CDT [facility] PROTIME 28.7(H) 10.6 - 12.4 sec 09/28/2024 8:16 AM CDT [facility] Blood BLOOD SPECIMEN / Unknown Butterfly / Unknown 09/28/2024 7:23 AM CDT 09/28/2024 7:57 AM CDT Narrative [facility] - 09/28/2024 8:16 AM CDT Therapeutic Range 2.0-3.0 for most anticoagulated patients 2.5-3.5 or 4.0 for high risk patients The INR is only used for patients on stable oral anticoagulant therapy. It makes no significant contribution to the diagnosis or treatment of patients whose Protime is prolonged for other reasons. INR results are increased when heparin levels exceed 1.0 U/mL, which corresponds to an aPTT >125 seconds if the patient is on UFH. us Nagi Santo MD HEMATOLOGY Final Re sult Performing Organization Address City/[facility]/ZIP Co de Phone Number [facility] [address] [place] [id number], [place] * SCAN-CARDIAC STRIP (09/28/2024 12:24 AM CDT) us Scanner OTHER Final Result * SCAN-CARDIAC STRIP (09/27/2024 8:00 PM CDT) us Scanner OTHER Final Result * SCAN-CARDIAC STRIP (09/27/2024 6:22 PM CDT) us Scanner OTHER Final Result * SCAN-CARDIAC STRIP (09/27/2024 6:22 PM CDT) us Scanner OTHER Final Result * SCAN-CARDIAC STRIP (09/26/2024 8:39 PM CDT) us Scanner OTHER Final Result * TSH (09/26/2024 8:51 AM CDT) TSH 1.60 0.27 - 4.20 uIU/mL 09/26/2024 1:04 PM CDT [facility] Blood BLOOD SPECIMEN / Unknown Venipuncture / Unknown 09/26/2024 8:51 AM CDT 09/26/2024 9:06 AM CDT Narrative [facility] - 09/26/2024 1:04 PM CDT In Adults, TSH values between 5.00 and 10.00 uIU/ml do not necessarily indicate the presence of Hypothyroidism. Correlation with clinical findings such as presence of goiter and/or Thyroperoxidase (TPO) Antibody may be helpful. For more information please refer to MICAH 2004; 291: [phone]. us Scarlett Nguyen NP CHEMISTRY Final Result Performing Organization Address City/[facility]/ZIP Co de Phone Number [facility] [address] [address], * (ABNORMAL) Hemoglobin AM (09/26/2024 8:51 AM CDT) Only the most recent of3 resultswithin the time period is included. HEMOGLOBIN 11.2(L) 12.0 - 16.0 g/dL 09/26/2024 9:21 AM CDT [facility] MCV 112(H) 80 - 100 fL 09/26/2024 9:21 AM CDT [facility] Blood BLOOD SPECIMEN / Unknown Venipuncture / Unknown 09/26/2024 8:51 AM CDT 09/26/2024 9:06 AM CDT us Milton Andersen MD HEMATOLOGY Final Re sult [facility] [address] [place] [address], * (ABNORMAL) PRO-BNP (09/26/2024 8:51 AM CDT) PRO-BNP 4,135(H) <450 pg/mL 09/26/2024 1:05 PM CDT [facility] Blood BLOOD SPECIMEN / Unknown Venipuncture / Unknown 09/26/2024 8:51 AM CDT 09/26/2024 9:06 AM CDT Narrative [facility] - 09/26/2024 1:05 PM CDT The following cut-points have been suggested for the use of proBNP for the diagnostic evaluation of heart failure (HF) in patient with acute dyspnea. Patients with eGFR >= 60 Diagnosis (rule in CHF) <50 Years Old 450 pg/mL 50 - 75 Years Old 900 pg/mL >75 Years Old 1800 pg/mL Exclusion (rule out CHF) Age Independent 300 pg/mL A cutoff of 1200 pg/mL for patients with an eGFR <60 yields a diagnostic sensitivity of 89% and specificity of 72% for acute congestive heart failure. us Scarlett Nguyen MARKETING DIRECTOR ASSISTED LIVING SEND OUTS Final Result [facility] [address] [place] [address], [place] * SCAN-CARDIAC STRIP (09/26/2024 7:31 AM CDT) us Scanner OTHER Final Result * SCAN-CARDIAC STRIP (09/25/2024 4:28 PM CDT) us Scanner OTHER Final Result * ECHO TTE LIMITED WO CONTRAST W COLOR W LTD DOPPLER (09/25/2024 12:36 PM CDT) AORTIC VALVE MEAN PG 3 mmHg EJECTION FRACTION 57 % PEAK TR VELOCITY 2.0 m/s LVEDD 3.9 cm EJECTION FRACTION 55 - 60% Anatomical Region Laterality Modality Ultrasound 09/25/2024 10:5 2 AM CDT Narrative 09/25/2024 2:36 PM CDT ECHOCARDIOGRAM KARINA CASTANEDA : 1940 84 years Study Date: 09/25/2024 10:52:24 AM Gender: F BP: 129/85 mmHg Height: 162.00 cm BSA: 1.64 m Weight: 60.00 kg Tech: AL Referring MD: NAGI SANTO Site: [facility] Reading Location: [facility] Patient Location: Inpatient. Procedure: 2D. Indication for study: heart failure Cardiac Rhythm: Atrial fibrillation.Study quality: Good. Final Impressions: Limited Echocardiogram performed 1. Normal LV size, normal wall thickness, normal global and regional systolic function with an estimated EF of 55 - 60%. 2. Right ventricular cavity size is normal, global systolic RV function is normal. 3. The aortic valve is trileaflet and sclerotic, no stenosis and mild regurgitation. 4. The mitral valve is sclerotic, mild mitral regurgitation. 5. Dilated ascending aorta, diameter of 4.6 cm (upper limit of normal for age, sex, and BSA is 3.9 cm*), Height Index 2.84. Comparison Compared to prior exam report of 07/04/2024, there has been no significant change. Chamber Sizes and Function Normal left ventricular size, normal wall thickness, normal global systolic function with an estimated EF of 55 - 60%. Left atrial size is mildly enlarged. Right ventricular cavity size is normal, global systolic RV function is normal. The sinus of Valsalva is normal sized. The ascending aorta is dilated. Valves, RV Pressures and Diastolic Function The aortic valve is trileaflet and sclerotic, no stenosis and mild regurgitation. The mitral valve is sclerotic, mild mitral regurgitation. Mild mitral annular calcification is present. The tricuspid valve is normal in structure, mild tricuspid regurgitation. The tricuspid regurgitant velocity is 2.0 m/s, the estimated right ventricular systolic pressure is 16 mmHg plus right atrial pressure. There is normal estimated pulmonary pressure by tricuspid regurgitation velocity and right atrial pressure. The pulmonic valve is normal. Trace pulmonic regurgitation is present on color flow. Masses, Effusion, Shunts There is no pericardial effusion. The inferior vena cava is normal sized, respiratory size variation greater than 50%. MEASUREMENTS AND CALCULATIONS 2-D Measurements and LV Function: LVID (d) 3.8 cm LV FS% (2D) 22 % LVID (s) 3.0 cm HR 101 bpm IVS (d) 1.0 cm LVPW (d) 1.1 cm Ao Sinus 3.6 cm Ao Sinus ULN 3.7 cm * Asc Ao 4.6 cm Asc Ao ULN 3.9 cm * LA 3.8 cm * Input age outside of range, reported values correspond to Age = 79 Aortic Valve: Vmax 1.2 m/s Max PG 6 mmHg AI P 1/2 486 msec VTI 0.23 m Mean PG 3 mmHg LVOT V max 0.7 m/s Dim Index 0.63 LVOT VTI 0.14 m Tricuspid Valve and estimated PA pressures: TR Vmax 2.0 m/s TR maxG 16 mmHg . This study was interpreted by an [facility] accredited facility. Final Procedure Note Artie Colvin MD - 09/25/2024 ECHOCARDIOGRAM KARINA CASTANEDA : 1940 84 years Study Date: 09/25/2024 10:52:24 AM Gender: F BP: 129/85 mmHg Height: 162.00 cm BSA: 1.64 m Weight: 60.00 kg Tech: AL Referring MD: NAGI SANTO Site: [facility] Reading Location: [facility] Patient Location: Inpatient. Procedure: 2D. Indication for study: heart failure Cardiac Rhythm: Atrial fibrillation.Study quality: Good. Final Impressions: Limited Echocardiogram performed 1. Normal LV size, normal wall thickness, normal global and regionalsystolic function with an estimated EF of 55 - 60%. 2. Right ventricular cavity size is normal, global systolic RV functionis normal. 3. The aortic valve is trileaflet and sclerotic, no stenosis and mildregurgitation. 4. The mitral valve is sclerotic, mild mitral regurgitation. 5. Dilated ascending aorta, diameter of 4.6 cm (upper limit of normal forage, sex, and BSA is 3.9 cm*), Height Index 2.84. Comparison Compared to prior exam report of 07/04/2024, there has been no significantchange. Chamber Sizes and Function Normal left ventricular size, normal wall thickness, normal globalsystolic function with an estimated EF of 55 - 60%. Left atrial size ismildly enlarged. Right ventricular cavity size is normal, global systolicRV function is normal. The sinus of Valsalva is normal sized. Theascending aorta is dilated. Valves, RV Pressures and Diastolic Function The aortic valve is trileaflet and sclerotic, no stenosis and mildregurgitation. The mitral valve is sclerotic, mild mitral regurgitation.Mild mitral annular calcification is present. The tricuspid valve isnormal in structure, mild tricuspid regurgitation. The tricuspidregurgitant velocity is 2.0 m/s, the estimated right ventricular systolicpressure is 16 mmHg plus right atrial pressure. There is normal estimatedpulmonary pressure by tricuspid regurgitation velocity and right atrialpressure. The pulmonic valve is normal. Trace pulmonic regurgitation ispresent on color flow. Masses, Effusion, Shunts There is no pericardial effusion. The inferior vena cava is normal sized,respiratory size variation greater than 50%. MEASUREMENTS AND CALCULATIONS 2-D Measurements and LV Function: LVID (d) 3.8 cm LV FS% (2D)22 % LVID (s) 3.0 cm HR101 bpm IVS (d) 1.0 cm LVPW (d) 1.1 cm Ao Sinus 3.6 cm Ao Sinus ULN 3.7 cm * Asc Ao 4.6 cm Asc Ao ULN 3.9 cm * LA 3.8 cm * Input age outside of range, reported values correspond to Age = 79 Aortic Valve: Vmax 1.2 m/s Max PG 6 mmHg AI P 1/2 486 msec VTI 0.23 m Mean PG 3 mmHg LVOT V max 0.7 m/s Dim Index 0.63 LVOT VTI 0.14 m Tricuspid Valve and estimated PA pressures: TR Vmax 2.0 m/s TR maxG 16 mmHg . This study was interpreted by an [facility] accredited facility. Final us Nagi Santo MD ECHO ORD Final Re sult * (ABNORMAL) CBC W PLT NO DIFF (09/25/2024 7:43 AM CDT) Only the most recent of3 resultswithin the time period is included. WHITE BLOOD COUNT 5.2 4.5 - 11.0 thou/cu mm 09/25/2024 8:31 AM T [facility] RED BLOOD COUNT 3.08(L) 4.00 - 5.20 mil/cu mm 09/25/2024 8:31 AM CDT [facility] HEMOGLOBIN 10.9(L) 12.0 - 16.0 g/dL 09/25/2024 8:31 AM T [facility] HEMATOCRIT 34.2 33.0 - 51.0 % 09/25/2024 8:31 AM T [facility] MCV 111(H) 80 - 100 fL 09/25/2024 8:31 AM T [facility] MCH 35.4(H) 26.0 - 34.0 pg 09/25/2024 8:31 AM CDT [facility] MCHC 31.9(L) 32.0 - 36.0 g/dL 09/25/2024 8:31 AM CDT [facility] RDW 16.6(H) 11.5 - 15.5 % 09/25/2024 8:31 AM CDT [facility] PLATELET COUNT 272 140 - 440 thou/cu mm 09/25/2024 8:31 AM CDT [facility] MPV 10.4 6.5 - 11.0 fL 09/25/2024 8:31 AM CDT [facility] [facility] NRBC 0.0 % 09/25/2024 8:31 AM CDT [facility] ABS NRBC 0.0 thou /cu mm 09/25/2024 8:31 AM CDT [facility] Blood BLOOD SPECIMEN / Unknown Venipuncture / Unknown 09/25/2024 7:43 AM CDT 09/25/2024 7:59 AM CDT us Nagi Santo MD HEMATOLOGY Final Re sult [facility] [address] [place] [address], * (ABNORMAL) BASIC METABOLIC PANEL (09/25/2024 7:43 AM CDT) Only the most recent of4 resultswithin the time period is included. SODIUM 143 136 - 145 mmol/L 09/25/2024 8:27 AM CDT [facility] POTASSIUM 3.5 3.5 - 5.1 mmol/L 09/25/2024 8:27 AM CDT [facility] CHLORIDE 109(H) 98 - 107 mmol/L 09/25/2024 8:27 AM CDT [facility] CO2,TOTAL 25 22 - 29 mmol/L 09/25/2024 8:27 AM CDT [facility] ANION GAP 9 5 - 18 09/25/2024 8:27 AM CDT [facility] GLUCOSE 91 70 - 99 mg/dL 09/25/2024 8:27 AM CDT [facility] CALCIUM 8.4(L) 8.8 - 10.4 mg/dL 09/25/2024 8:27 AM CDT [facility] Comment: Reference ranges for this test were updated on 04/09/2024 to reflect our healthy population more accurately. Reference range changes are not retroactively applied to results, but previous results using the same methodology can be interpreted in the context of the new reference range. BUN 18 8 - 23 mg/dL 09/25/2024 8:27 AM CDT [facility] CREATININE 0.66 0.50 - 0.90 mg/dL 09/25/2024 8:27 AM [facility] BUN/CREAT RATIO 27(H) 10 - 20 8:27 AM T [facility] eGFR 86(L) >90 mL/min/1. 73m2 09/25/2024 8:27 AM T [facility] Comment:As of 2021, eG FR is calculated by the CKD-EPI creatinine equation without race adjustment. eGFR can be influenced by muscle mass, exercise, and diet. The reported eGFR is an estimation only and is only applicable if the renal function is stable. Blood BLOOD SPECIMEN / Unknown Venipuncture / Unknown 09/25/2024 7:43 AM CDT 09/25/2024 7:59 AM CDT us Nagi Santo MD CHEMISTRY Final Re sult [facility] [address] [place] [address], * SCAN-CARDIAC STRIP (09/25/2024 7:31 AM CDT) us Scanner OTHER Final Result * SCAN-CARDIAC STRIP (09/25/2024 2:03 AM CDT) us Scanner OTHER Final Result * SCAN-CARDIAC STRIP (09/24/2024 10:43 PM CDT) us Scanner OTHER Final Result * URINALYSIS W REFLEX MICROSCOPIC IF POSITIVE (09/24/2024 2:31 PM CDT) Only the most recent of2 resultswithin the time period is included. COLOR Yellow Yellow Color 09/24/2024 2:39 PM CDT [facility] CLARITY Clear Clear Clarity 09/24/2024 2:39 PM CDT [facility] SPECIFIC GRAVITY,URINE 1.010 1.010, 1.015, 1.020, 1.025 09/24/2024 2:39 PM CDT [facility] PH,URINE 6.0 6.0, 7.0, 8.0, 5.5, 6.5, 7.5, 8.5 09/24/2024 2:39 PM CDT [facility] UROBILINOGEN, QUALITATIVE Normal Normal EU/dl 09/24/2024 2:39 PM CDT [facility] PROTEIN, URINE Negative Negative mg/dL 09/24/2024 2:39 PM CDT [facility] GLUCOSE, URINE Negative Negative mg/dL 09/24/2024 2:39 PM CDT [facility] KETONES,URINE Negative Negative mg/dL 09/24/2024 2:39 PM CDT [facility] BILIRUBIN,URI NE Negative Negative 09/24/2024 2:39 PM CDT [facility] OCCULT BLOOD,URINE Negative Negative 09/24/2024 2:39 PM CDT [facility] NITRITE Negative Negative 09/24/2024 2:39 PM CDT [facility] LEUKOCYTE ESTERASE Negative Negative 09/24/2024 2:39 PM CDT [facility] Urine URINE SPECIMEN / Unknown Non-Blood / Unknown 09/24/2024 2:31 PM CDT 09/24/2024 2:35 PM CDT us Artie Dent MD URINE Final Result [facility] [address] [place] [address] * CT HEAD BRAIN WO (09/24/2024 12:51 PM CDT) Only the most recent of2 resultswithin the time period is included. Anatomical Region Laterality Modality HEAD, BRAIN Computed Tomogra phy 09/24/2024 1:15 PM CDT Impressions 09/24/2024 1:15 PM CDT IMPRESSION:1. No CT evidence of acute cortical infarct. No acute intracranial hemorrhage. No other acute intracranial findings. Please note that all CT scans at this facility use dose modulation, iterative reconstruction, and/or weight-based dosing when appropriate to reduce radiation dose to as low as reasonably achievable. Dictated by Brian Pratt MD @ 09/24/2024 1:15:39 PM (Electronically Signed) Narrative 09/24/2024 1:15 PM CDT For Patients: As a result of the Cures Act, medical imaging exams and procedure reports are released immediately into your electronic medical record. You may view this report before your referring provider. If you have questions, please contact your health care provider. INDICATION: Confusion. TECHNIQUE: CT of the head without contrast. Coronal and sagittal reformats are included. COMPARISON: Head CT from 08/26/2024. FINDINGS: No CT evidence of acute cortical infarct. No loss of andujar white matter differentiation. No hyperdense vessels to suggest intracranial thrombus. No acute intracranial hemorrhage. No mass effect or midline shift. No hydrocephalus or extra-axial collections. Patchy white matter hypoattenuation, typical for chronic microvascular ischemic change. Moderate generalized parenchymal volume loss. Intracranial vascular calcifications. No acute osseous abnormalities. Mastoid air cells and paranasal sinuses are clear. Normal soft tissues. Procedure Note Brian Pratt MD - 09/24/2024 For Patients: As a result of the Cures Act, medical imagingexams and procedure reports are released immediately into your electronicmedical record. You may view this report before your referring provider.If you have questions, please contact your health care provider. INDICATION: Confusion. TECHNIQUE: CT of the head without contrast. Coronal and sagittal reformats areincluded. COMPARISON: Head CT from 08/26/2024. FINDINGS: No CT evidence of acute cortical infarct. No loss of andujar white matterdifferentiation. No hyperdense vessels to suggest intracranial thrombus.No acute intracranial hemorrhage. No mass effect or midline shift. Nohydrocephalus or extra-axial collections. Patchy white matterhypoattenuation, typical for chronic microvascular ischemic change.Moderate generalized parenchymal volume loss. Intracranial vascularcalcifications. No acute osseous abnormalities. Mastoid air cells and paranasal sinusesare clear. Normal soft tissues. IMPRESSION: IMPRESSION:1. No CT evidence of acute cortical infarct. No acuteintracranial hemorrhage. No other acute intracranial findings. Please note that all CT scans at this facility use dose modulation,iterative reconstruction, and/or weight-based dosing when appropriate toreduce radiation dose to as low as reasonably achievable. Dictated by Brian Pratt MD @ 09/24/2024 1:15:39 PM (Electronically Signed) us Artie Dent MD CT Final Result * XR CHEST 2 VIEWS PA AND LATERAL (09/24/2024 12:42 PM CDT) Anatomical Region Laterality Modality CHEST, THORAX, Lung, HEART Digit al Radiography 09/24/2024 1:05 PM CDT Impressions 09/24/2024 1:05 PM CDT No findings to explain the clinical history. Incidental findings described in the body of the report. Dictated by Gregorio aKhn MD @ 09/24/2024 1:05:41 PM (Electronically Signed) Narrative 09/24/2024 1:05 PM CDT For Patients: As a result of the Century Cures Act, medical imaging exams and procedure reports are released immediately into your electronic medical record. You may view this report before your referring provider. If you have questions, please contact your health care provider. INDICATION: Shortness of breath. Confusion. COMPARISON: 09/05/2024 TECHNIQUE: 2 views. FINDINGS: Medical Devices: None. Lung Volumes: Adequate inspiration. No significant atelectasis. Lungs: Clear lungs. Pleura and Pleural spaces: No significant pleural effusion. No pneumothorax. Mediastinum: Stable cardiomediastinal silhouette. AP technique exaggerates the transverse dimension of the cardiac silhouette. Cardiomegaly is nevertheless considered to be present. This is unchanged. Unchanged tortuosity of the descending thoracic aorta, a common senescent finding. Bony Thorax and Soft Tissues: No significant incidental/interval findings. Redemonstration of internal fixation of multiple right ribs. Right upper quadrant cholecystectomy clips. Procedure Note Gregorio Kahn MD - 09/24/2024 For Patients: As a result of the Cures Act, medical imagingexams and procedure reports are released immediately into your electronicmedical record. You may view this report before your referring provider.If you have questions, please contact your health care provider. INDICATION: Shortness of breath. Confusion. COMPARISON: 09/05/2024 TECHNIQUE: 2 views. FINDINGS: Medical Devices: None. Lung Volumes: Adequate inspiration. No significant atelectasis. Lungs: Clear lungs. Pleura and Pleural spaces: No significant pleural effusion. Nopneumothorax. Mediastinum: Stable cardiomediastinal silhouette. AP technique exaggeratesthe transverse dimension of the cardiac silhouette. Cardiomegaly isnevertheless considered to be present. This is unchanged. Unchangedtortuosity of the descending thoracic aorta, a common senescent finding. Bony Thorax and Soft Tissues: No significant incidental/interval findings.Redemonstration of internal fixation of multiple right ribs. Right upperquadrant cholecystectomy clips. IMPRESSION: No findings to explain the clinical history. Incidental findings describedin the body of the report. Dictated by Gregorio Kahn MD @ 09/24/2024 1:05:41 PM (Electronically Signed) us Artie Dent MD GENERAL IMAGING Final Result * EKG 12 LEAD (09/24/2024 11:58 AM CDT) Only the most recent of4 resultswithin the time period is included. Interpretation Atrial fibrillation Inferior infarct , age undetermined ST & T wave abnormality, consider anterolateral ischemia Abnormal ECG No concerning change from prior BEYOND NOW Ventricular Rate 85 BPM BEYOND NOW Atrial Rate BPM BEYOND NOW P-R Interval ms BEYOND NOW QRS Duration 80 ms BEYOND NOW QT 354 ms BEYOND NOW QTc 421 ms BEYOND NOW P [place] degrees BEYOND NOW R [place] -20 degrees BEYOND NOW T [place] 193 degrees BEYOND NOW 09/24/2024 11:5 8 AM CDT 09/24/2024 12:31 PM CDT Artie Dent MD EKG ORD Final Result Performing Organization Address [facility] [[email or web address]] de Phone Number BEYOND NOW [place], [place] * (ABNORMAL) SODIUM (09/10/2024 8:15 AM CDT) Only the most recent of5 resultswithin the time period is included. SODIUM 133(L) 136 - 145 mmol/L 09/10/2024 9:04 AM CDT [facility] Blood BLOOD SPECIMEN / Unknown Butterfly / Unknown 09/10/2024 8:15 AM CDT 09/10/2024 8:33 AM CDT Hakan Watson MD CHEMISTRY Final Resul t Performing Organization Address [facility] [[email or web address]] de Phone Number [facility] [address] [place] [address], * (ABNORMAL) CREATININE (09/10/2024 8:15 AM CDT) Only the most recent of5 resultswithin the time period is included. eGFR 82(L) >90 mL/min/1.7 3m2 09/10/2024 9:04 AM CDT [facility] Comment:As of 2021, eG FR is calculated by the CKD-EPI creatinine equation without race adjustment. eGFR can be influenced by muscle mass, exercise, and diet. The reported eGFR is an estimation only and is only applicable if the renal function is stable. CREATININE 0.72 0.50 - 0.90 mg/dL 09/10/2024 9:04 AM CDT [facility] Blood BLOOD SPECIMEN / Unknown Butterfly / Unknown 09/10/2024 8:15 AM CDT 09/10/2024 8:33 AM CDT Hakan Watson MD CHEMISTRY Final Resul t [facility] [address] [place] [address], [place] * SCAN-CARDIAC STRIP (09/10/2024 1:47 AM CDT) us Scanner OTHER Final Result * SCAN-CARDIAC STRIP (09/09/2024 12:48 AM CDT) us Scanner OTHER Final Result * SCAN-CARDIAC STRIP (09/08/2024 2:12 PM CDT) us Scanner OTHER Final Result * CT ABDOMEN PELVIS STONE PROTOCOL WO (09/08/2024 10:39 AM CDT) Anatomical Region Laterality Modality Abdomen, Pelvis, AORTA, LIVER, SPLEEN Computed Tomography 09/08/2024 12:0 6 PM CDT Narrative 09/08/2024 12:06 PM CDT For Patients: As a result of the Cures Act, medical imaging exams and procedure reports are released immediately into your electronic medical record. You may view this report before your referring provider. If you have questions, please contact your health care provider. Indication: Abdominal/flank pain, stone suspected Technique: Noncontrast CT abdomen and pelvis Please note that all CT scans at this facility use dose modulation, iterative reconstruction, and/or weight-based dosing when appropriate to reduce radiation dose to as low as reasonably achievable. Comparison: 07/03/2024 CT pelvis Findings: Postoperative changes to the right lateral ribcage. Small bilateral pleural effusions. Patchy linear areas of subsegmental scarring are present in both lung bases. Cardiomegaly. Ectasia of the aorta. The distal thoracic aorta measures up to 4.7 cm. The distal abdominal aorta measures up to 3.7 cm. Bladder is unremarkable. No pelvic mass. Mild pelvic ascites. Sigmoid diverticulosis without diverticulitis. No mechanical bowel obstruction. Subcutaneous edema. Right hip replacement hardware. No renal calculi. Thickening of the adrenal glands. No splenomegaly. Gallbladder absent. Noncontrast enhanced liver unremarkable. Pancreatic atrophy. Ureters are unremarkable. No ureteral stone or hydroureter. Dextroscoliotic deformity of the lumbar spine. No vertebral body compression fracture. Multilevel degenerative changes. Postop changes to the right proximal femur. Impression: No renal, ureteral or bladder calculi. No hydronephrosis. Presacral edema/fluid, nonspecific. No drainable abscess. Diffuse subcutaneous edema suggests some degree of anasarca/third-spacing. 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 Sigmoid diverticulosis. Small bilateral pleural effusions. Please note that all CT scans at this facility use dose modulation, iterative reconstruction, and/or weight-based dosing when appropriate to reduce radiation dose to as low as reasonably achievable. Dictated by Dalton Lara MD @ 09/08/2024 12:06:45 PM (Electronically Signed) Procedure Note Dalton Lara MD - 09/08/2024 For Patients: As a result of the Cures Act, medical imagingexams and procedure reports are released immediately into your electronicmedical record. You may view this report before your referring provider.If you have questions, please contact your health care provider. Indication: Abdominal/flank pain, stone suspected Technique: Noncontrast CT abdomen and pelvis Please note that all CT scans at this facility use dose modulation,iterative reconstruction, and/or weight-based dosing when appropriate toreduce radiation dose to as low as reasonably achievable. Comparison: 07/03/2024 CT pelvis Findings: Postoperative changes to the right lateral ribcage. Small bilateralpleural effusions. Patchy linear areas of subsegmental scarring arepresent in both lung bases. Cardiomegaly. Ectasia of the aorta. The distalthoracic aorta measures up to 4.7 cm. The distal abdominal aorta measuresup to 3.7 cm. Bladder is unremarkable. No pelvic mass. Mild pelvicascites. Sigmoid diverticulosis without diverticulitis. No mechanicalbowel obstruction. Subcutaneous edema. Right hip replacement hardware. Norenal calculi. Thickening of the adrenal glands. No splenomegaly.Gallbladder absent. Noncontrast enhanced liver unremarkable. Pancreaticatrophy. Ureters are unremarkable. No ureteral stone or hydroureter.Dextroscoliotic deformity of the lumbar spine. No vertebral bodycompression fracture. Multilevel degenerative changes. Postop changes tothe right proximal femur. Impression: No renal, ureteral or bladder calculi. No hydronephrosis. Presacral edema/fluid, nonspecific. No drainable abscess. Diffusesubcutaneous edema suggests some degree of anasarca/third-spacing. 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 Sigmoid diverticulosis. Small bilateral pleural effusions. Please note that all CT scans at this facility use dose modulation,iterative reconstruction, and/or weight-based dosing when appropriate toreduce radiation dose to as low as reasonably achievable. Dictated by Dalton Lara MD @ 09/08/2024 12:06:45 PM (Electronically Signed) Sophie Camp MD CT F inal Result * WHITE BLOOD COUNT (09/06/2024 8:53 AM CDT) [facility] WHITE BLOOD COUNT 10.7 4.5 - 11.0 thou/cu mm 09/06/2024 9:16 AM CDT [facility] NRBC 0.3 % 09/06/2024 9:16 AM CDT [facility] ABS NRBC 0.0 thou /cu mm 09/06/2024 9:16 AM CDT [facility] Blood BLOOD SPECIMEN / Unknown Venipuncture / Unknown 09/06/2024 8:53 AM CDT 09/06/2024 9:00 AM CDT Hakan Watson MD HEMATOLOGY Final Resul t [facility] [address] [place] [address], * (ABNORMAL) TROPONIN T (HS) ONE TIME (09/05/2024 11:05 PM CDT) [facility] TROPONIN T HS 27(H) 6-10 ng/L ng/L 09/05/2024 11:38 PM CDT [facility] Blood BLOOD SPECIMEN / Unknown Non-Lab Venipuncture / Unknown 09/05/2024 11:05 PM CDT 09/05/2024 11:12 PM CDT Artie Dent MD CHEMISTRY Final Result Performing Organization Address [facility] Co de Phone Number [facility] [address] [address], [place] * (ABNORMAL) URINALYSIS MICROSCOPIC (09/05/2024 10:09 PM CDT) RBC 0-2 0-2, None Seen /HPF 09/05/2024 10:59 PM CDT [facility] WBC 11-25(A) 0-2, 3-5, None Seen /HPF 09/05/2024 10:59 PM CDT [facility] BACTERIA Moderate(A ) None Seen, Rare, Few Bacteria/ HPF 09/05/2024 10:59 PM CDT [facility] EPITHELIAL CELLS Few None Seen, Few Epi/HPF 09/05/2024 10:59 PM CDT [facility] HYALINE CASTS 26-50(A) 0-2, 3-5 /LPF 09/05/2024 10:59 PM CDT [facility] Urine URINE SPECIMEN / Unknown Non-Blood / Unknown 09/05/2024 10:09 PM CDT 09/05/2024 10:24 PM CDT Artie Dent MD URINE Final Result Performing Organization Address [facility] Co de Phone Number [facility] [address] [address], [place] * URINE CULTURE (09/05/2024 10:09 PM CDT) CULTURE No growth (<1,000 CFU/mL) 09/08/2024 2:21 PM CDT [facility] Urine URINE SPECIMEN / Unknown Non-Blood / Unknown 09/05/2024 10:09 PM CDT 09/05/2024 10:24 PM CDT us Hakan Watson MD MICROBIOLOGY Final Resul t [facility] [address] [place] [address], [place] * XR CHEST 1 VIEW PORTABLE (09/05/2024 9:21 PM CDT) Anatomical Region Laterality Modality HEART, THORAX, CHEST Digital Rad iography 09/05/2024 9:48 PM CDT Impressions 09/05/2024 9:48 PM CDT No acute or significant findings. No change. Dictated by Jeff Snell MD @ 09/05/2024 9:48:55 PM (Electronically Signed) Narrative 09/05/2024 9:48 PM CDT For Patients: As a result of the Cures Act, medical imaging exams and procedure reports are released immediately into your electronic medical record. You may view this report before your referring provider. If you have questions, please contact your health care provider. INDICATION: Shortness of breath. Weakness. TECHNIQUE: Chest 1 views. COMPARISON: July 03, 2024. FINDINGS: Cardiovascular and mediastinum: Stable heart size and vasculature. Lungs and pleural spaces: Left basilar atelectasis. No sign of infiltrate or mass. No sign of pleural effusion. No pneumothorax. Bones and soft tissues: Right ribs postsurgical changes. No significant findings. Procedure Note Jeff Snell MD - 09/05/2024 For Patients: As a result of the Cures Act, medical imagingexams and procedure reports are released immediately into your electronicmedical record. You may view this report before your referring provider.If you have questions, please contact your health care provider. INDICATION: Shortness of breath. Weakness. TECHNIQUE: Chest 1 views. COMPARISON: July 03, 2024. FINDINGS: Cardiovascular and mediastinum: Stable heart size and vasculature. Lungs and pleural spaces: Left basilar atelectasis. No sign of infiltrateor mass. No sign of pleural effusion. No pneumothorax. Bones and soft tissues: Right ribs postsurgical changes. No significantfindings. IMPRESSION: No acute or significant findings. No change. Dictated by Jeff Snell MD @ 09/05/2024 9:48:55 PM (Electronically Signed) Artie Dent MD GENERAL IMAGING Final Result * LACTATE SCREEN ISTAT W CISSE (09/05/2024 8:32 PM CDT) Pathologist [facility] LACTATE VENOUS SCREEN ISTAT <1.8 <=2.0 09/05/2024 8:35 PM CDT [facility] LACTATE SCREEN VENOUS POCT 1.4 <=2.0 09/05/2024 8:35 PM CDT [facility] Blood BLOOD SPECIMEN / Unknown 09/05/2024 8:32 PM CDT 09/05/2024 8:35 PM CDT Artie Dent MD LABORATORY Final Result Performing Organization Address City/State/[facility] Co de Phone Number [facility] [address] [address], * (ABNORMAL) TROPONIN T (HS) ACUTE W/2HR REFLEX (09/05/2024 8:26 PM CDT) [facility] TROPONIN T HS 29(H) 6-10 ng/L ng/L 09/05/2024 9:14 PM CDT [facility] Blood BLOOD SPECIMEN / Unknown Non-Lab Venipuncture / Unknown 09/05/2024 8:26 PM CDT 09/05/2024 8:33 PM CDT Narrative [facility] - 09/05/2024 9:14 PM CDT hs-cTnT (Elecsys Troponin T Gen 5) concentration (s) above the sex-specific 99th percentile (16 ng/L or greater for males or 11 ng/L or greater for females) are indicative of myocardial injury. If initial hs-cTnT <=100 ng/L at presentation, a 0h/2h ABSOLUTE (ng/L) delta change (rising or falling) of >=10 ng/L suggests a significant change, whereas a 0h/2h delta change <=3 ng/L suggests no significant change. If initial hs-cTnT >100 ng/L at presentation, a 0h/2h/ RELATIVE (percent, %) delta change of 20% is suggested to distinguish patients with acute vs. chronic myocardial injury. There are multiple etiologies that can cause hs-cTnT increases above the 99th percentile (myocardial injury) other than acute myocardial infarction. Clinical context and careful clinical evaluation are critical for diagnosis and risk-stratification. The diagnosis of acute myocardial infarction requires a rising and/or falling pattern in hs-cTnT concentrations with at least one value above the sex-specific 99th percentile PLUS at least one of the following clinical criteria: ischemic symptoms, new or presumed new significant ST-T wave changes or new LBBB, development of pathological Q waves, imaging evidence of new loss of viable myocardium or new regional wall motion abnormality, or identification of intracoronary atherothrombosis or an acute angiographic culprit on coronary angiography. In appropriate low-risk patients with a non-ischemic electrocardiogram without active chest pain with a symptom onset >3-hours without recurrence, a single initial hs-cTnT<6 ng/L identifies patient with a very low risk in emergency department patient population. Artie Dent MD CHEMISTRY Final Result Performing Organization Address City/[facility]/ZIP Co de Phone Number [facility] [address] [place] [address], [place] * EXTRA TUBE CISSE ON ICE (09/05/2024 8:26 PM CDT) Blood BLOOD SPECIMEN / Unknown Non-Lab Venipuncture / Unknown 09/05/2024 8:26 PM CDT 09/05/2024 8:33 PM CDT Artie Dent MD LABORATORY Final Result Performing Organization Address City/[facility]/ZIP Co de Phone Number [facility] [address] [address], [place] * (ABNORMAL) LIPASE (09/05/2024 8:26 PM CDT) LIPASE 77.6(H) 13.0 - 60.0 IU/L 09/05/2024 8:56 PM CDT [facility] Blood BLOOD SPECIMEN / Unknown Non-Lab Venipuncture / Unknown 09/05/2024 8:26 PM CDT 09/05/2024 8:33 PM CDT Artie Dent MD CHEMISTRY Final Result [facility] [address] [place] [address], [place] * (ABNORMAL) HEPATIC FUNCTION PANEL (09/05/2024 8:26 PM CDT) [facility] ALBUMIN 2.7(L) 4.0 - 4.9 g/dL 09/05/2024 8:56 PM CDT [facility] PROTEIN,TOTAL 6.2 6.0 - 8.0 g/dL 09/05/2024 8:56 PM CDT [facility] BILIRUBIN,TOTAL 0.3 0.0 - 1.2 mg/dL 09/05/2024 8:56 PM CDT [facility] BILIRUBIN,DIRECT 0.2 0.0 - 0.2 mg/dL 09/05/2024 8:56 PM CDT [facility] BILIRUBIN,INDIRE CT 0.1(L) 0.2 - 0.8 mg/dL 09/05/2024 8:56 PM CDT [facility] ALK PHOSPHATASE 143(H) 35 - 104 IU/L 09/05/2024 8:56 PM CDT [facility] ALT (SGPT) 6(L) 10 - 35 IU/L 09/05/2024 8:56 PM CDT [facility] AST (SGOT) 21 10 - 35 IU/L 09/05/2024 8:56 PM CDT [facility] Blood BLOOD SPECIMEN / Unknown Non-Lab Venipuncture / Unknown 09/05/2024 8:26 PM CDT 09/05/2024 8:33 PM CDT Artie Dent MD CHEMISTRY Final Result [facility] [address] [place] [address], [place] * SCAN-RADIOLOGY REPORT (09/05/2024 12:00 AM CDT) Anatomical Region Laterality Modality Other us Scanner OTHER Final Result * (ABNORMAL) CBC WITH AUTO DIFFERENTIAL (08/26/2024 10:20 PM CDT) WHITE BLOOD COUNT 10.8 4.5 - 11.0 thou/cu mm 08/26/2024 10:33 PM CDT [facility] RED BLOOD COUNT 3.11(L) 4.00 - 5.20 mil/cu mm 08/26/2024 10:33 PM CDT [facility] HEMOGLOBIN 10.9(L) 12.0 - 16.0 g/dL 08/26/2024 10:33 PM CDT [facility] HEMATOCRIT 34.0 33.0 - 51.0 % 08/26/2024 10:33 PM CDT [facility] MCV 109(H) 80 - 100 fL 08/26/2024 10:33 PM CDT [facility] MCH 35.0(H) 26.0 - 34.0 pg 08/26/2024 10:33 PM CDT [facility] MCHC 32.1 32.0 - 36.0 g/dL 08/26/2024 10:33 PM CDT [facility] RDW 15.4 11.5 - 15.5 % 08/26/2024 10:33 PM CDT [facility] PLATELET COUNT 265 140 - 440 thou/cu mm 08/26/2024 10:33 PM CDT [facility] MPV 10.4 6.5 - 11.0 fL 08/26/2024 10:33 PM CDT [facility] NRBC 0.2 % 08/26/2024 10:33 PM CDT [facility] ABS NRBC 0.0 thou /cu mm 08/26/2024 10:33 PM CDT [facility] % NEUT 68.8 % 08/26/2024 10:33 PM CDT [facility] % LYMPH 21.2 % 08/26/2024 10:33 PM CDT [facility] % MONO 8.4 % 08/26/2024 10:33 PM CDT [facility] % EOS 0.4 % 08/26/2024 10:33 PM CDT [facility] % BASO 0.3 % 08/26/2024 10:33 PM CDT [facility] % IMMATURE GRAN (METAS,MYELOS,NM OS) 0.9 % 08/26/2024 10:33 PM CDT [facility] ABSOLUTE NEUTROPHILS 7.4(H) 1.7 - 7.0 thou/cu mm 08/26/2024 10:33 PM CDT [facility] ABSOLUTE LYMPHOCYTES 2.3 0.9 - 2.9 thou/cu mm 08/26/2024 10:33 PM CDT [facility] ABSOLUTE MONOCYTES 0.9(H) <0.9 thou/cu mm 08/26/2024 10:33 PM CDT [facility] ABSOLUTE EOSINOPHILS 0.0 <0.5 thou/cu mm 08/26/2024 10:33 PM CDT [facility] ABSOLUTE BASOPHILS 0.0 <0.3 thou/cu mm 08/26/2024 10:33 PM CDT [facility] ABSOLUTE IMMATURE GRANULOCYTES(MET ,MYELOS,PROS) 0.1 <0.3 thou/cu mm 08/26/2024 10:33 PM CDT [facility] Blood BLOOD SPECIMEN / Unknown Non-Lab Venipuncture / Unknown 08/26/2024 10:20 PM CDT 08/26/2024 10:29 PM CDT Rhonda Robles MD HEMATOLOGY Final Resu lt [facility] [address] [place] [address], * XR KNEE 2 VIEWS LEFT (08/21/2024 9:34 AM CDT) Anatomical Region Laterality Modality KNEE L Computed Radiogr aphy Impressions 08/21/2024 6:53 PM CDT As noted in findings above. Reading services were personally performed by Cate Quispe MD, documentation performed by RASHEEDA Pena ATC based on my observation of services performed and provider statements to me. Cate Quispe MD 08/21/2024 Narrative 08/21/2024 6:53 PM CDT For Patients: As a result of the Cures Act, medical imaging exams and procedure reports are released immediately into your electronic medical record. You may view this report before your referring provider. If you have questions, please contact your health care provider. This radiology exam was performed at the [facility] in [place] and interpreted by Cate Quispe MD. HISTORY: A 84 y.o. year-old female with left knee pain with history of trauma. TECHNICAL: 2 views of the left knee were obtained consisting of a non-weightbearing AP and lateral. FINDINGS: Evidence of a lateral tibial plateau fracture is stable alignment compared to prior imaging. Cate Quispe MD GENERAL IMAGING Final Result * XR FEMUR 2 VIEWS RIGHT (08/21/2024 9:34 AM CDT) Anatomical Region Laterality Modality FEMURS, FEMUR R Computed Radiogr aphy Impressions 08/21/2024 6:53 PM CDT As noted in findings above. Reading services were personally performed by Cate Quispe MD, documentation performed by RASHEEDA Pena ATC based on my observation of services performed and provider statements to me. Cate Quispe MD 08/21/2024 Narrative 08/21/2024 6:53 PM CDT For Patients: As a result of the Cures Act, medical imaging exams and procedure reports are released immediately into your electronic medical record. You may view this report before your referring provider. If you have questions, please contact your health care provider. This radiology exam was performed at the [facility] in [place] and interpreted by Cate Quispe MD. HISTORY: A 84 y.o. year-old female with right femur pain with history of trauma. TECHNICAL: 2 views of the right femur were obtained consisting of a non-weightbearing AP and lateral. FINDINGS: Evidence of a femoral shaft fracture status post open reduction and internal fixation. The alignment of the bones and implants is stable. There is early bony callous at the fracture site. us Cate Quispe MD GENERAL IMAGING Final Result from Last 3 Months Additional Health Concerns Infection Onset Date Last Indicated COVID History Comment:COVID+ test result dates: 08/27/24, [facility] Patient met COVID clearance. For evaluation of subsequent COVID+ results, refer to the algorithm on the AK[facility]: Isolation Precaution Recommendations for Patients with History of COVID-19 Infection. 09/09/2024 09/09/[id number] [place] [id number] MEDICARE PART A HB ONLY MEDICARE ADVANTAGE [place] [id number] MEDICARE PART B HB ONLY MR [place] HB ONLY [place] [id number] Advance Directives Documents on File Type Date Recorded Patient Hearing Stenographer Expl anation Healthcare Directive 05/24/2019 12:00 AM * DNR (Latest Code Status on File) Date Activated Date Inactivated Comments 09/29/2024 11:26 AM * DNR Date Activated Date Inactivated Comments 09/29/2024 11:21 AM 09/29/2024 11:26 AM Question Answer Comments Code Status Discussion: Reviewed Preferences * Full Code Date Activated Date Inactivated Comments 09/24/2024 9:12 PM 09/29/2024 11:21 AM Question Answer Comments Code Status Discussion: Reviewed Preferences * Full Code Date Activated Date Inactivated Comments 09/06/2024 2:04 AM 09/10/2024 6:02 PM Question Answer Comments Code Status Discussion: Reviewed Preferences * Full Code Date Activated Date Inactivated Comments 07/04/2024 3:33 AM 07/12/2024 8:26 PM Question Answer Comments Code Status Discussion: Reviewed Preferences 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
[2024-11-01 12:19] LABS: Basophils Absolute Auto 0.03 K/uL (0.00-0.30); Basophils Percent Auto 0.6 % (0.0-3.0); Eosinophils Percent Auto 1.9 % (0.0-7.0); Hematocrit* 38.3 % (33.0-51.0); Hemoglobin* 12.3 gm/dL (12.0-16.0); Immature Granulocytes Abs Auto 0.19 K/uL (0.00-0.30); Immature Granulocytes Pct Auto 3.6 %; Lymphocytes Percent Auto 9.6 % (20-44); Mean Corpuscular HGB Conc 32 gm/dL (32-36); Mean Corpuscular Hemoglobin 36 pg (26-34); Mean Corpuscular Volume 111 fL (80-100); Monocytes Percent Auto 0.9 % (0.0-11.0); Neutrophils Percent Auto 83.4 % (42.0-72.0); Platelet Count* 292 K/uL (140-440); RDW Coefficient of Variation % 15.6 % (11.5-15.5); Red Blood Count* 3.44 m/uL (4.00-5.20); White Blood Count* 5.32 K/uL (4.50-11.00)
[2024-11-01 12:21] LABS: Slide Review Reflex Yes
[2024-11-01 12:32] LABS: Chloride* 104 mmol/L (96-114)
[2024-11-01 12:33] LABS: Potassium* 4.2 mmol/L (3.6-5.1); Sodium* 134 mmol/L (135-149)
[2024-11-01 12:36] LABS: Anion Gap 6 mEq/L (7-15); Blood Urea Nitrogen* 27 mg/dL (7-30); Calcium* 8.1 mg/dL (8.4-10.6); Carbon Dioxide* 24 mmol/L (20-32); Creatinine* 1.3 mg/dL (0.5-1.5); Estimated Glomerular Filt Rate 40 ml/min; Glucose* 93 mg/dL (60-115)
[2024-11-01 12:44] LABS: Slide Review Acceptable Review (Acceptable)
[2024-11-01 12:45] LABS: Appearance Urine Slightly Cloudy (Clear); Bilirubin Urine 2+ (Negative); Blood Urine Negative (Negative); Color Urine Yellow (Yellow); Glucose Urine Negative (Negative); Ketones Urine Trace (Negative); Leukocyte Esterase Urine Trace (Negative); Nitrite Urine Negative (Negative); Protein Urine Negative (Negative); Urobilinogen Urine 0.2 (0.2-1.0); pH Urine 5.5 (5.0-8.5)
[2024-11-01] MEDS: 0.9 % SODIUM CHLORIDE 1000 ml 1,000 ML IV (13:03)
[2024-11-01 13:16] LABS: Amorphous Sediment Urine Few; RBC Urine 0-2 (0-2); Squamous Epithelial Cell Urine Few (None-Few)
[2024-11-01 13:17] LABS: Other Sediment Urine Few
[2024-11-01] MEDS: ONDANSETRON 2 MG/ML inj 4 MG IVP (14:39)
== END 2024-11-01 14:59 | disposition home or self-care (01) ==
PROVIDERS: Emergency Provider Family Medicine; PCP Family Medicine
DX: M25.511 Pain in right shoulder (principal); F03.94 Unspecified dementia, unspecified severity, with anxiety; R82.90 Unspecified abnormal findings in urine
CPT/HCPCS: 36415; 73030; 80048; 81001; 85025; 87086; 87186; 94761; 96374; 99284; J2405; J7030

== ENCOUNTER 2024-11-01 14:49 | Outpatient (CLI) | payer OTHER, SELFPAY | END 2024-11-01 14:50 | disposition home or self-care (01) | LOC: AMB 11-04 09:14 | PROVIDERS: PCP Family Medicine; Visit Provider Student in an Organized Health Care Education/Training Program | DX: R11.2 Nausea with vomiting, unspecified (principal); F03.90 Unspecified dementia, unspecified severity, without behavioral disturbance, psychotic disturbance, mood disturbance, and anxiety; Z74.01 Bed confinement status | CPT/HCPCS: A0425; A0428 ==